=== PATIENT | female | born 1965 | race African-American/Black ===

== ENCOUNTER 2016-12-07 11:19 | Outpatient (CLI) ==
[2015-05-23 12:35] VITALS: BMI 39.8
--- NOTE | 2016-12-09 08:55 | MAMMO ---
EXAM: Bilateral digital screening mammogram History: Baseline screening Findings: MLO and CC views of bilateral breasts demonstrate predominately fatty replaced breast par enchyma. Benign bilateral breast calcifications. Focal asymmetry within the right retroareolar reg ion. No suspicious microcalcifications. Also focal asymmetry within the posterior superior right br east seen only on the MLO view. Impression: Indeterminate focal asymmetry within the right retroareolar region. Also indeterminate focal asymmetry within the posterior-superior right breast. Recommend further evaluation with spot compression views and possible ultrasound. BIRADS 0
== END 2016-12-07 11:20 | disposition home or self-care (01) ==
LOC: RAD 11:19
PROVIDERS: ATTEND Family Medicine
DX: Z12.31 Encounter for screening mammogram for malignant neoplasm of breast (principal)

== ENCOUNTER 2016-12-14 09:35 | Outpatient (CLI) ==
[2015-05-23 12:35] VITALS: BMI 39.8
--- NOTE | 2016-12-14 11:22 | US ---
EXAM: Right breast ultrasound. History: Right breast masses. Comparison: Right diagnostic mammogram 12/14/2016 Technique: Multiple sonographic images through the right breast were obtained. Color duplex Dopple r was used to interrogate vascular flow. Findings: Within the right retroareolar region, there is a 6 mm x 8 mm dilated duct or cyst cluster that correlates with mammography. No sonographic abnormalities were seen in the right axillary alyce on to correlate with the asymmetry seen on mammogram. Impression: Probably benign right retroareolar dilated duct or cyst cluster. Recommend 6-month foll ow-up right diagnostic mammogram to document stability of the cyst cluster and probably benign right axillary asymmetry. BIRADS 3
--- NOTE | 2016-12-14 11:24 | MAMMO ---
EXAM: Right digital diagnostic mammogram History: Right breast masses. Comparison: Screening mammogram 12/07/2016 Findings: Right breast density is fatty. Additional spot compression views of the right breast in the MLO and CC projections confirm the presence of the right retroareolar asymmetry and right axilla ry asymmetry. Impression: Indeterminate right breast asymmetries. Recommend further evaluation with ultrasound. BIRADS 0
== END 2016-12-14 09:36 | disposition home or self-care (01) ==
LOC: RAD 09:35
PROVIDERS: ATTEND Family Medicine
DX: R92.8 Other abnormal and inconclusive findings on diagnostic imaging of breast (principal)

== ENCOUNTER 2017-01-29 15:45 | Outpatient (CLI) ==
[2015-05-23 12:35] VITALS: BMI 39.8
== END 2017-01-29 15:46 | disposition home or self-care (01) ==
LOC: LAB 15:45
PROVIDERS: ATTEND Dermatology
DX: L63.9 Alopecia areata, unspecified (principal)
CPT/HCPCS: 36415; 84439; 84443; 86038

== ENCOUNTER 2017-10-28 01:20 | Outpatient (CLI) ==
[2015-05-23 12:35] VITALS: BMI 39.8
== END 2017-10-28 01:21 | disposition left against medical advice (07) ==
LOC: AMBL 01:20
PROVIDERS: ATTEND Family Medicine
DX: R04.2 Hemoptysis (principal); J02.9 Acute pharyngitis, unspecified; J34.89 Other specified disorders of nose and nasal sinuses

== ENCOUNTER 2018-05-15 13:15 | Emergency (ER) ==
[2018-05-15 13:15] VITALS: BMI 39.8
[2018-05-15 13:27] VITALS: BP 135/84; TEMP 98.8
--- NOTE | 2018-05-15 14:09 | ED.PDOC ---
General ED Provider: Dr. ABIODUN OLIVARES Chief Complaint: Back Pain Stated Complaint: Feels pain in her RT Lower Back with sciatica symptoms into RLE to knee. Onset this past Wednesday but continued to work all week but had to miss work on Wednesday due to pain. 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 Has rested at home last 2 days and had difficulty getting up and out of bed without assistance. Overall better today but still sore. Needs work excuse but would like to go back to work tomorrow. Attempting to use exercises but not giving her relief. Past hx of bilateral sciatica R>L. Time Seen by Physician: 13:45 Mode of Arrival: Walk-In Information Source: Patient Exam Limitations: No limitations Primary Care Provider: MAT VALENCIA Nursing and Triage Documentation Reviewed and Agree: Yes Does patient meet sepsis criteria?: No System Inflammatory Response Syndrome: Not Applicable Sepsis Protocol: For patient's 13 years and over: Temp is 96.8 and below OR 101 and greater Pulse >90 BPM Resp >20/minute Acutely Altered Mental Status Are patient's symptoms suggestive of a new infection, such as: -Pneumonia -Skin, Soft Tissue -Endocarditis -UTI -Bone, Joint Infection -Implantable Device -Acute Abdominal Infection -Wound Infection -Meningitis -Blood Stream Catheter Infection -Unknown Musculoskeletal Complaint Exam - Back Pain Complaint/Exam Mechanism of Injury: Reports: No known trauma Onset/Duration: 1 week Symptoms Are: Still present Timing: Constant Episodes Lasting: Days (6) Initial Severity: Severe Current Severity: Moderate Location: Reports: Radiating Character: Reports: Sharp, Aching, Throbbing, Stiffness Aggravating: Reports: Movements, Lifting, Bending, Walking Alleviating: Reports: Rest, Position Associated Signs and Symptoms: Denies: Swelling, Redness, Bruising, Fever, Weakness, Numbness, Tingling, Abdominal pain, Flank pain, Bladder incontinence, Bowel incontinence, Weight loss, Pain with weight bearing Related History: Reports: Similar episode TAD Risk Factors: Reports: None AAA Risk Factors: Reports: None Cauda Equina Risk Factors: Reports: None Epidural Abcess Risk Factors: Reports: None Related Surgical History: Reports: None Focal Tenderness: Yes Paraspinal Muscle Tenderness: Yes Paraspinal Muscle Spasm: Yes Scoliosis: No Lordosis: No Kyphosis: No SLR Test: Right Positive Hip Motion Testing Pain: Right Positive Focal Weakness: Present: None Focal Sensory Loss: Present: None Gait: Present: Abnormal (slow, hesitant, antlagic) Back Picture: 1 - Lumbar sacral region Differential Diagnoses: Arthritis, Herniated Disk, Strain, Sprain Review of Systems - Review Of Systems Constitutional: Reports: No symptoms Eyes: Reports: No symptoms Ears, Nose, Mouth, Throat: Reports: No symptoms Respiratory: Reports: No symptoms Cardiac: Reports: No symptoms GI: Reports: No symptoms : Reports: No symptoms Musculoskeletal: Reports: Back pain Skin: Reports: No symptoms Neurological: Reports: No symptoms Endocrine: Reports: No symptoms Hematologic/Lymphatic: Reports: No symptoms All Other Systems: Reviewed and Negative Past Medical History - Past Medical History Previously Healthy: Yes Endocrine: Reports: DM 2 Cardiovascular: Reports: Hypertension Respiratory: Reports: None Hematological: Reports: None Gastrointestinal: Reports: GERD Genitourinary: Reports: None Neuro/Psych: Reports: None Musculoskeletal: Reports: Back Pain Cancer: Reports: None Last Menstrual Period: 2 MONTHS AGO - Surgical History General Surgical History: Reports: Tubal ligation (1992), (x4), Cholecystectomy - Family History Family History: Reports: Unknown - Social History Smoking Status: Former smoker Hx Substance Use: No Alcohol Screening: Occasionally - Immunizations Tetanus Shot up to Date: Yes Physical Exam - Physical Exam Appearance: Well-appearing, No pain distress, Well-nourished Eyes: EREN, EOMI, Conjunctiva clear ENT: Ears normal, Nose normal, Oropharynx normal Respiratory: Airway patent, Breath sounds clear, Breath sounds equal, Respirations nonlabored Cardiovascular: RRR, Pulses normal, No rub, No murmur GI/: Soft, Nontender, No masses, Bowel sounds normal, No Organomegaly Musculoskeletal: Normal strength, ROM intact, No edema, No calf tenderness Skin: Warm, Dry, Normal color Neurological: Sensation intact, Motor intact, Reflexes intact, Cranial nerves intact, Alert, Oriented Psychiatric: Affect appropriate, Mood appropriate Interpretation - Radiology Interpretation Radiology Interpretation By: Radiologist Radiology Results: No acute changes Exam Interpreted: CT Scan (see interpretation -anterolithesis L4-5) Critical Care Note - Critical Care Note Total Time (mins): 0 Course - Course Hematology/Chemistry: 05/15/18 14:45 05/15/18 14:45 Orders, Labs, Meds: Lab Review 05/15/18 05/15/18 05/15/18 14:00 14:00 14:45 WBC 6.36 RBC 3.92 L Hgb 11.7 L Hct 35.5 L MCV 90.6 MCH 29.8 MCHC 33.0 RDW Coeff of Padilla 13.5 Plt Count 317 Immature Gran % (Auto) 0.2 Neut % (Auto) 40.8 Lymph % (Auto) 45.1 [place] % (Auto) 9.3 Eos % (Auto) 3.8 Baso % (Auto) 0.8 Immature Gran # (Auto) 0.0 Neut # (Auto) 2.6 Lymph # (Auto) 2.9 [place] # (Auto) 0.6 Eos # (Auto) 0.2 Baso # (Auto) 0.1 ESR 16 Sodium Potassium Chloride Carbon Dioxide Anion Gap BUN Creatinine Estimated GFR (MDRD) BUN/Creatinine Ratio Glucose Calcium Total Bilirubin AST ALT Alkaline Phosphatase Total Creatine Kinase Total Protein Albumin Globulin Albumin/Globulin Ratio Urine Color Yellow Urine Clarity Clear Urine pH 6.5 Ur Specific [place] 1.025 Urine Protein Negative Urine Glucose (UA) Negative Urine Ketones Negative Urine Blood Negative Urine Nitrite Negative Urine Bilirubin Negative Urine Urobilinogen 0.2 Ur Leukocyte Esterase Negative Urine Opiates Screen Negative Ur Oxycodone Screen Negative Urine Methadone Screen Negative Ur Propoxyphene Screen Negative Ur Barbiturates Screen Negative U Tricyclic Antidepress Negative Ur Phencyclidine Scrn Negative Ur Amphetamine Screen Negative U Methamphetamines Scrn Negative U Benzodiazepines Scrn Negative Urine Cocaine Screen Negative U Cannabinoids Screen Negative 05/15/18 14:45 WBC RBC Hgb Hct MCV MCH MCHC RDW Coeff of Padilla Plt Count Immature Gran % (Auto) Neut % (Auto) Lymph % (Auto) [place] % (Auto) Eos % (Auto) Baso % (Auto) Immature Gran # (Auto) Neut # (Auto) Lymph # (Auto) [place] # (Auto) Eos # (Auto) Baso # (Auto) ESR Sodium 135 L Potassium 4.5 Chloride 104 Carbon Dioxide 23 Anion Gap 12.5 BUN 14 Creatinine 0.61 Estimated GFR (MDRD) 125.00 BUN/Creatinine Ratio 22.95 Glucose 109 Calcium 9.7 Total Bilirubin 0.6 AST 11 L ALT 14 Alkaline Phosphatase 96 Total Creatine Kinase 62 Total Protein 7.4 Albumin 3.2 L Globulin 4.2 Albumin/Globulin Ratio 0.76 Urine Color Urine Clarity Urine pH Ur Specific [place] Urine Protein Urine Glucose (UA) Urine Ketones Urine Blood Urine Nitrite Urine Bilirubin Urine Urobilinogen Ur Leukocyte Esterase Urine Opiates Screen Ur Oxycodone Screen Urine Methadone Screen Ur Propoxyphene Screen Ur Barbiturates Screen U Tricyclic Antidepress Ur Phencyclidine Scrn Ur Amphetamine Screen U Methamphetamines Scrn U Benzodiazepines Scrn Urine Cocaine Screen U Cannabinoids Screen Orders Category Date Time Status CBC W/ AUTO DIFF Stat LAB 05/15/18 14:45 Completed CMP [COMPREHENSIVE METABOLIC PANEL] Stat LAB 05/15/18 14:45 Completed CPK [CREATINE KINASE] Stat LAB 05/15/18 14:45 Completed ESR Stat LAB 05/15/18 14:45 Completed UA [URINALYSIS C & S IF INDICATED] Stat LAB 05/15/18 14:00 Completed URINE DRUG SCREEN (RAPID FOR ED) [DRUG SCREEN, URINE, LAB 05/15/18 14:00 Completed RAPID] Stat Cyclobenzaprine HCl [Flexeril] MEDS 05/15/18 14:16 Discontinued 10 mg PO ONCE STA Ketorolac Tromethamine [Toradol] MEDS 05/15/18 14:16 Discontinued 30 mg IM ONCE STA CT LUMBAR SPINE W/O CONTRAST Stat RADS 05/15/18 14:14 Completed Medications Discontinued Medications Generic Name Dose Route Start Last Admin Trade Name Freq PRN Reason Stop Dose Admin Cyclobenzaprine HCl 10 mg 05/15/18 14:16 05/15/18 14:29 Flexeril PO 05/15/18 14:17 10 mg ONCE STA Administration Ketorolac Tromethamine 30 mg 05/15/18 14:16 05/15/18 14:29 Toradol IM 05/15/18 14:17 30 mg ONCE STA Administration Vital Signs: Temp Pulse Resp BP Pulse Ox 05/15/18 13:15 98.8 F 81 20 135/84 97 Departure - Departure Time of Disposition: 16:30 Disposition: HOME SELF-CARE Discharge Problem: Low back pain, Sciatic leg pain, Anterolisthesis Instructions: Sciatica (ED), Lumbar Radiculopathy (ED), Lower Back Exercises ( ED) Condition: Good Pt referred to PMD for follow-up: Yes (See Dr Valencia in next few days-may need MRI) IPMP verified?: No Additional Instructions: User warm moist heat to areas of discomfort Take meds for pain control Recommended consider additional out patient evaluation including MRI plus PT ; consider referral to Pain management Allergies/Adverse Reactions: Allergies APPLES Allergy (Uncoded 05/15/18 13:27) HIVES, THROAT CLOSED Home Medications: Ambulatory Orders Amlodipine Besylate/Benazepril [Lotrel 5-20 mg Capsule] 1 cap PO DAILY 06/05/14 Famotidine [Pepcid] 20 mg PO BIDAC 06/05/14 Fluticasone Propionate [Flonase] 2 spray NS BID 06/05/14 Metformin HCl [Glucophage] 500 mg PO BIDWM 06/05/14 Cyclobenzaprine HCl [Flexeril] 5 mg PO BID PRN #20 tablet 05/15/18 Metoprolol Tartrate [Lopressor] 25 mg PO BID 05/15/18 Disposition Discussed With: Patient, Family
[2018-05-15] MEDS ORDERED: TORADOL IM STA (14:16)
[2018-05-15] MEDS ORDERED: FLEXERIL PO STA (14:16)
--- NOTE | 2018-05-15 14:53 | CT ---
EXAM: CT lumbar spine without contrast. HISTORY: Severe sciatica pain COMPARISON: CT abdomen pelvis 09/19/2014 TECHNIQUE: Serial axial images of the spine were obtained from the lower thoracic spine through the pelvis without contrast. These were viewed in multiple planes. FINDINGS: Vertebral bodies demonstrate no acute compression fracture. There is 0.3 cm of anterolist hesis of L4 on L5. There is moderate facet arthropathy, most pronounced at L4-L5. There is no lytic or blastic lesion. The lumbosacral junction is intact. L1-L2: Normal L2-L3: There is minimal facet arthropathy with no central or neural foraminal narrowing. L3-L4: Mild facet arthropathy with no central or neural foraminal narrowing. L4-L5: Anterior listhesis and broad-based disc bulge with facet arthropathy with mild to moderate dulce tral narrowing with bilateral severe neural foraminal narrowing. L5-S1: Broad-based disc bulge with no central or neural foraminal narrowing. Limited views of the soft tissues are unremarkable. IMPRESSION: 1. Anterolisthesis with degenerative change and broad-based disc bulge at L4-L5 with severe bilatera l neural foraminal narrowing and mild to moderate central narrowing. 2. No acute compression fracture with scattered degenerative disease in the remaining lumbosacral sp ine.
== END 2018-05-15 16:57 | disposition home or self-care (01) ==
LOC: ED 13:15
DX: M54.41 Lumbago with sciatica, right side (principal); M43.16 Spondylolisthesis, lumbar region
CPT/HCPCS: 36415; 80053; 80306; 81001; 82550; 85025; 85651; 96372; 99283

== ENCOUNTER 2018-11-25 10:09 | Emergency (ER) ==
[2018-11-25 10:20] VITALS: BP 165/89; TEMP 102.1; BMI 38.6
--- NOTE | 2018-11-25 12:12 | CT ---
EXAM: CT BRAIN HISTORY: Dizziness TECHNIQUE: CT brain without intravenous contrast. 5-mm axial sections with Reformations. COMPARISON: None FINDINGS: Brain is unremarkable without evidence of hemorrhage or large vessel distribution recent ischemic in farction. There is no suggestion of acute hydrocephalus or subdural fluid collection. No mass or ma ss effect. Cranium has no acute finding. Mastoid processes are aerated. The visualized paranasal sinuses are clear. IMPRESSION: No acute intracranial process.
--- NOTE | 2018-11-25 12:16 | CT ---
EXAM: CT THORAX HISTORY: Cough. TECHNIQUE: CT thorax without intravenous contrast. Multiplanar images presented. COMPARISON: None FINDINGS: Normal heart size. No pericardial effusion. Thoracic aorta is within normal limits. No lymphadenop athy. There are subtle discoid opacities in the left upper lobe. The lungs are otherwise clear. Normal va scularity. No pleural fluid. The bones reveal anterior and lateral bridging osteophytic spurring of the mid thoracic spine. IMPRESSION: 1. Subtle discoid opacity in the left upper lobe could represent scarring, atelectasis or minimal pn eumonia. Lungs are otherwise clear.
--- NOTE | 2018-11-25 12:44 | ED.PDOC ---
General ED Provider: Dr. ARINA REEVES Chief Complaint: Fever Stated Complaint: flu like symptoms cough, fever , chills dizziness , headache Time Seen by Physician: 10:30 (seen with nurse at all times ) Mode of Arrival: Walk-In Information Source: Patient Exam Limitations: No limitations Primary Care Provider: MAT BACA Nursing and Triage Documentation Reviewed and Agree: Yes Does patient meet sepsis criteria?: No System Inflammatory Response Syndrome: Not Applicable Sepsis Protocol: For patient's 13 years and over: Temp is 96.8 and below OR 101 and greater Pulse >90 BPM Resp >20/minute Acutely Altered Mental Status Are patient's symptoms suggestive of a new infection, such as: -Pneumonia -Skin, Soft Tissue -Endocarditis -UTI -Bone, Joint Infection -Implantable Device -Acute Abdominal Infection -Wound Infection -Meningitis -Blood Stream Catheter Infection -Unknown Neurological Complaint Exam - Dizziness Complaint/Exam Onset: Gradual Duration: 2 days Symptoms Are: Still present Timing: Intermittent Initial Severity: Mild Current Severity: Mild Character: Reports: Lightheaded Aggravating: Reports: None Alleviating: Reports: None Associated Signs and Symptoms: Reports: Nausea. Denies: Vomiting, Diaphoresis, Tinnitus, Chest pain, Short of air, Palpitations, Unsteady gait, GI blood loss, Visual changes, Decreased oral intake, Change in medication, Change in diet, OTC meds, Loss of balance Related History: Similar episode Cardiac Risk Factors: Reports: None CVA Risk Factors: Reports: None Related Surgical History: Reports: None JVD Present: No Carotid Bruit Present: No Glascow Coma Scale (see protocol): 15 Nystagmus Present: No Gag Reflex Present: No Meningeal Signs Positive: No Focal Weakness: Present: None Focal Sensory Loss: Present: None Gait: Normal Babinski Sign: Negative Right, Negative Left Heel to Toe Normal: No [place]-Hallpike Test Positive: No Differential Diagnoses: Hypovolemia, Metabolic abnormalities, Other (viral syndrome) Quality Indicators for Cardiac Chest Pain: EKG in 10min. Quality Indicators for AMI: EKG in 10min. Quality Indicator For Non-Traumatic Chest Pain/Syncope: EKG Performed Review of Systems - Review Of Systems Constitutional: Reports: Chills, Fever, Malaise, Weakness Eyes: Reports: No symptoms Ears, Nose, Mouth, Throat: Reports: No symptoms Respiratory: Reports: Cough Cardiac: Reports: No symptoms GI: Reports: No symptoms : Reports: No symptoms Musculoskeletal: Reports: No symptoms Skin: Reports: No symptoms Neurological: Reports: No symptoms Endocrine: Reports: No symptoms Hematologic/Lymphatic: Reports: No symptoms All Other Systems: Reviewed and Negative Past Medical History - Past Medical History Previously Healthy: Yes Endocrine: Reports: DM 2 Cardiovascular: Reports: Hypertension Respiratory: Reports: None Hematological: Reports: None Gastrointestinal: Reports: GERD Genitourinary: Reports: None Neuro/Psych: Reports: None Musculoskeletal: Reports: Back Pain Cancer: Reports: None Last Menstrual Period: 3 months ago - Surgical History General Surgical History: Reports: Tubal ligation (1992), (x4), Cholecystectomy - Family History Family History: Reports: Unknown - Social History Smoking Status: Former smoker Hx Substance Use: No Alcohol Screening: Occasionally Physical Exam - Physical Exam Appearance: Ill-appearing Ill-appearing: Mild Pain Distress: Mild Eyes: EREN, EOMI, Conjunctiva clear ENT: Ears normal, Nose normal, Oropharynx normal Respiratory: Rhonchi Cardiovascular: RRR, Pulses normal, No rub, No murmur GI/: Soft, Nontender, No masses, Bowel sounds normal, No Organomegaly Musculoskeletal: Normal strength, ROM intact, No edema, No calf tenderness Skin: Warm, Dry, Normal color Neurological: Sensation intact, Motor intact, Reflexes intact, Cranial nerves intact, Alert, Oriented Psychiatric: Affect appropriate, Mood appropriate - NIH Stroke Scale 1a. Level of Consciousness: 0=Alert and keenly responsive 1b. Level of Consciousness Questions: 0=Answers correctly to two questions 1c. Level of Consciousness Commands: 0=Performs two tasks correctly 2. Best Gaze: 0=Normal 3. Visual: 0=No visual loss 4. Facial Palsy: 0=Normal 5a. Motor Left Arm: 0=No drift,arm holds 90 degrees for 10 sec., leg 30 degrees for 5 sec. 5b. Motor Right Arm: 0=No drift,arm holds 90 degrees for 10 sec., leg 30 degrees for 5 sec. 6a. Motor Left Le=No drift,arm holds 90 degrees for 10 sec., leg 30 degrees for 5 sec. 6b. Motor Right Le=No drift,arm holds 90 degrees for 10 sec., leg 30 degrees for 5 sec. 7. Limb Ataxia: 0=Absent 9. Best Language: 0=No aphasia 10. Dysarthria: 0=Normal 11. 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 Rhythm: Sinus - EKG Interpretation Rate: Tachy Rhythm: Sinus Ectopy: None [place]: NL ST Segment: Normal Critical Care Note - Critical Care Note Total Time (mins): 0 Course - Course Hematology/Chemistry: 11/25/18 11:22 11/25/18 11:22 Orders, Labs, Meds: Lab Review 11/25/18 11/25/18 11/25/18 10:25 11:00 11:06 WBC RBC Hgb Hct MCV MCH MCHC RDW Coeff of Padilla Plt Count Immature Gran % (Auto) Neut % (Auto) Lymph % (Auto) [place] % (Auto) Eos % (Auto) Baso % (Auto) Immature Gran # (Auto) Neut # (Auto) Lymph # (Auto) [place] # (Auto) Eos # (Auto) Baso # (Auto) Puncture Site Rb O2 Saturation 96.0 ABG pH 7.432 ABG pCO2 30.7 L ABG pO2 80.0 L ABG HCO3 20.5 L ABG Total CO2 21 L ABG Base Excess -4 L FiO2 % 21.0 Sodium Potassium Chloride Carbon Dioxide Anion Gap BUN Creatinine Estimated GFR (MDRD) BUN/Creatinine Ratio Glucose Lactic Acid Calcium Total Bilirubin AST ALT Alkaline Phosphatase Total Protein Albumin Globulin Albumin/Globulin Ratio Procalcitonin 0.05 Urine Color Urine Clarity Urine pH Ur Specific [place] Urine Protein Urine Glucose (UA) Urine Ketones Urine Blood Urine Nitrite Urine Bilirubin Urine Urobilinogen Ur Leukocyte Esterase Influ A Molecular Assay Negative by naat Influ B Molecular Assay Negative by naat 11/25/18 11/25/18 11/25/18 11:22 11:22 11:22 WBC 6.63 RBC 4.30 Hgb 12.2 Hct 37.8 MCV 87.9 MCH 28.4 MCHC 32.3 RDW Coeff of Padilla 13.8 Plt Count 330 Immature Gran % (Auto) 0.5 Neut % (Auto) 82.7 Lymph % (Auto) 8.6 L [place] % (Auto) 3.9 Eos % (Auto) 3.8 Baso % (Auto) 0.5 Immature Gran # (Auto) 0.0 Neut # (Auto) 5.5 Lymph # (Auto) 0.6 [place] # (Auto) 0.3 L Eos # (Auto) 0.3 Baso # (Auto) 0.0 Puncture Site O2 Saturation ABG pH ABG pCO2 ABG pO2 ABG HCO3 ABG Total CO2 ABG Base Excess FiO2 % Sodium 137.7 Potassium 3.93 Chloride 98.1 Carbon Dioxide 26.0 Anion Gap 17.53 BUN 12.5 Creatinine 0.53 L Estimated GFR (MDRD) 147.00 BUN/Creatinine Ratio 23.58 Glucose 177.4 H Lactic Acid 1.92 Calcium 10.02 Total Bilirubin 0.43 AST 22.1 ALT 18.7 Alkaline Phosphatase 152.4 H Total Protein 8.71 H Albumin 4.47 Globulin 4.24 Albumin/Globulin Ratio 1.05 Procalcitonin Urine Color Urine Clarity Urine pH Ur Specific [place] Urine Protein Urine Glucose (UA) Urine Ketones Urine Blood Urine Nitrite Urine Bilirubin Urine Urobilinogen Ur Leukocyte Esterase Influ A Molecular Assay Influ B Molecular Assay 11/25/18 11:30 WBC RBC Hgb Hct MCV MCH MCHC RDW Coeff of Padilla Plt Count Immature Gran % (Auto) Neut % (Auto) Lymph % (Auto) [place] % (Auto) Eos % (Auto) Baso % (Auto) Immature Gran # (Auto) Neut # (Auto) Lymph # (Auto) [place] # (Auto) Eos # (Auto) Baso # (Auto) Puncture Site O2 Saturation ABG pH ABG pCO2 ABG pO2 ABG HCO3 ABG Total CO2 ABG Base Excess FiO2 % Sodium Potassium Chloride Carbon Dioxide Anion Gap BUN Creatinine Estimated GFR (MDRD) BUN/Creatinine Ratio Glucose Lactic Acid Calcium Total Bilirubin AST ALT Alkaline Phosphatase Total Protein Albumin Globulin Albumin/Globulin Ratio Procalcitonin Urine Color Yellow Urine Clarity Clear Urine pH 5.5 Ur Specific [place] 1.025 Urine Protein Negative Urine Glucose (UA) Negative Urine Ketones Negative Urine Blood Negative Urine Nitrite Negative Urine Bilirubin Negative Urine Urobilinogen 0.2 Ur Leukocyte Esterase Negative Influ A Molecular Assay Influ B Molecular Assay Orders Category Date Time Status ABG DRAW REQUEST Stat CARDIO 11/25/18 11:07 Completed EKG-(ED ONLY) Stat CARDIO 11/25/18 11:06 Completed ABG Stat LAB 11/25/18 11:06 Completed BLOOD CULTURE Stat LAB 11/25/18 11:43 Received CBC W/ AUTO DIFF Stat LAB 11/25/18 11:22 Completed COMPREHENSIVE METABOLIC PANEL Stat LAB 11/25/18 11:22 Completed FLU A/B MOLECULAR Stat LAB 11/25/18 10:25 Completed LACTIC ACID Stat LAB 11/25/18 11:22 Completed MOLECULAR GROUP A STREP Stat LAB 11/25/18 10:25 Completed PROCALCITONIN Stat LAB 11/25/18 11:00 Completed UA [URINALYSIS C & S IF INDICATED] Stat LAB 11/25/18 11:[address] CHEST W/O CONTRAST Stat RADS 11/25/18 11:[address] HEAD W/O CONTRAST Stat RADS 11/25/18 11:04 Completed Vital Signs: Temp Pulse Resp BP Pulse Ox 11/25/18 10:12 102.1 F H 102 H 20 165/89 H 98 Departure - Departure Time of Disposition: 12:45 Disposition: HOME SELF-CARE Discharge Problem: Viral syndrome Pneumonia Qualifiers: Pneumonia type: due to unspecified organism Laterality: unspecified laterality Lung location: unspecified part of lung Qualified Code(s): J18.9 - Pneumonia, unspecified organism Instructions: Pneumonitis (ED), Vertigo (DC), Vertigo (ED), Dizziness (ED) Condition: Good Pt referred to PMD for follow-up: Yes IPMP verified?: No Additional Instructions: Please call your Family Physician as soon as possible to schedule a follow-up appointment. Prescriptions: Hydrocodone/Acetaminophen [[place] 5-325 Tablet] 1 each PO Q6HR PRN #7 tablet PRN Reason: PAIN Allergies/Adverse Reactions: Allergies APPLES Allergy (Uncoded 11/25/18 10:17) HIVES, THROAT CLOSED Home Medications: Ambulatory Orders Amlodipine Besylate/Benazepril [Lotrel 5-20 mg Capsule] 1 cap PO DAILY 06/05/14 Famotidine [Pepcid] 20 mg PO BIDAC 06/05/14 Fluticasone Propionate [Flonase] 2 spray NS BID 06/05/14 Metformin HCl [Glucophage] 500 mg PO BIDWM 06/05/14 Cyclobenzaprine HCl [Flexeril] 5 mg PO BID PRN #20 tablet 05/15/18 Metoprolol Tartrate [Lopressor] 25 mg PO BID 05/15/18 Doxycycline Hyclate 100 mg PO DAILY 11/25/18 Hydrocodone/Acetaminophen [[place] 5-325 Tablet] 1 each PO Q6HR PRN #7 tablet
== END 2018-11-25 13:35 | disposition home or self-care (01) ==
LOC: ED 10:09
DX: R50.9 Fever, unspecified (principal); R05 Cough; R42 Dizziness and giddiness; R51 Headache; R11.0 Nausea; R53.1 Weakness; J18.9 Pneumonia, unspecified organism; B34.9 Viral infection, unspecified
CPT/HCPCS: 36415; 80053; 81001; 82803; 83605; 84145; 85025; 87040; 87502; 87651; 93005; 93010; 99283